=== PATIENT | male | born 1945 | race Caucasian/White ===

== ENCOUNTER 2024-12-25 08:21 | Outpatient (CLI) | payer MEDICARE, BC, SELFPAY | END 2024-12-25 08:22 | disposition home or self-care (01) | PROVIDERS: PCP Family Medicine; Visit Provider Family Medicine | DX: M54.16 Radiculopathy, lumbar region (principal); M51.369 Other intervertebral disc degeneration, lumbar region without mention of lumbar back pain or lower extremity pain | CPT/HCPCS: 62323; J0702; Q9966 ==